=== PATIENT | female | born 1945 | race Caucasian/White ===

== ENCOUNTER 2017-10-06 06:48 | Day surgery (SDC) ==
[2017-10-06 07:20] VITALS: TEMP 98.6
[2017-10-06] MEDS ORDERED: LIDOCAINE 1% 20 ML MDV ID STA (07:22)
[2017-10-06] MEDS ORDERED: VERSED ONE (08:45)
[2017-10-06] MEDS ORDERED: DIPRIVAN 20 ML VIAL IVP ONE (08:45)
[2017-10-06 10:14] VITALS: BP 125/67
--- NOTE | 2017-10-07 09:53 | OP ---
PROCEDURE: COLONOSCOPY TO THE CECUM WITH SNARE POLYPECTOMY. ENDOSCOPIST: Arnulfo JIMENEZ M.D. INDICATION: SCREENING AND A HIGH RISK PATIENT. 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 DATE OF LAST COLONOSCOPY: 5 YEARS PREVIOUS TO THIS EXAM INSTRUMENT: [id number]. MEDICATION: PER ANESTHESIA. PROCEDURE: The patient was positioned for colonoscopy. The digital rectal exam was negative. The colonoscope was inserted through the anus and advanced to the cecum. The cecum was identified using the ileocecal valve and the appendiceal orifice as landmarks. The scope was slowly withdrawn through an suboptimally prepped colon. In cecum a 1cm sessile polyp was removed used snare cautery. Diverticuli are seen in the left colon. Residual stool throughout the colon restricting the ability to the see sessile polyps. Retroflex exam was otherwise normal. Withdraw time is 11 minutes and 36 seconds. PLAN: 1. Repeat in one year with a two day prep CC: Dr. Jose NORRIS
== END 2017-10-06 09:50 | disposition home or self-care (01) ==
LOC: SURG 06:48
PROVIDERS: ATTEND Internal Medicine Gastroenterology
DX: Z12.11 Encounter for screening for malignant neoplasm of colon (principal); D12.0 Benign neoplasm of cecum; K57.30 Diverticulosis of large intestine without perforation or abscess without bleeding; Z80.0 Family history of malignant neoplasm of digestive organs